=== PATIENT | female | born 1990 | race Caucasian/White ===

== ENCOUNTER 2018-07-29 11:38 | Outpatient (REF) | payer BC, SELFPAY | END 2018-07-29 11:58 | LOC: NCHCN 11:38 | PROVIDERS: Visit Provider Nurse Practitioner | DX: J02.9 Acute pharyngitis, unspecified (principal) | CPT/HCPCS: 87081 ==

== ENCOUNTER 2020-10-16 11:23 | Outpatient (REF) | payer BC, SELFPAY ==
[2020-10-17 14:47] LABS: COVID-19 RT-PCR UVMMC Result Negative (Negative)
== END 2020-10-16 11:24 | disposition home or self-care (01) ==
LOC: LBN 11:23
PROVIDERS: Visit Provider Family Medicine
DX: Z20.822 Contact with and (suspected) exposure to COVID-19 (principal); J06.9 Acute upper respiratory infection, unspecified
CPT/HCPCS: U0003

== ENCOUNTER 2021-07-18 03:00 | Outpatient (CLI) | payer BC, SELFPAY ==
[2021-07-18 09:30] VITALS: BP 147/101; PULSE 65; RESP 14; TEMP 37.2; O2SAT 97
[2021-07-18 11:45] VITALS: BP 152/97; PULSE 62; RESP 16; TEMP 37.1; O2SAT 98
== END 2021-07-18 03:01 | disposition home or self-care (01) ==
LOC: INF 03:03
PROVIDERS: PCP Nurse Practitioner Family; Visit Provider Family Medicine
DX: U07.1 COVID-19 (principal)
CPT/HCPCS: 96365; Q0047

== ENCOUNTER 2024-09-13 10:02 | Outpatient (CLI) | payer BC, SELFPAY ==
[2024-09-20 14:48] LABS: Apolipoprotein B, Serum 92 mg/dL (48-124); Beta VLDL Cholesterol Not Detected mg/dL (<15); Beta VLDL Triglycerides Not Detected mg/dL (<15); Cholesterol, Total, CDC 178 mg/dL; Chylomicron Cholesterol Not Detected; Chylomicron Triglycerides Not Detected; HDL Cholesterol, CDC 42 mg/dL (>=50); LDL Cholesterol 107 mg/dL; LDL Triglycerides 27 mg/dL (<=50); Lp(a) Cholesterol 6 mg/dL (<5); LpX Not detected; Triglycerides, CDC 106 mg/dL; VLDL Cholesterol 23 mg/dL (<30); VLDL Triglycerides 62 mg/dL (<120)
== END 2024-09-13 10:03 | disposition home or self-care (01) ==
LOC: LBO 10:02
PROVIDERS: PCP Nurse Practitioner Family; Visit Provider Nurse Practitioner Family
DX: Z83.438 Family history of other disorder of lipoprotein metabolism and other lipidemia (principal)
CPT/HCPCS: 36415; 80061; 82172; 82664

== ENCOUNTER 2025-01-16 07:57 | Outpatient (CLI) | payer BC, SELFPAY ==
--- NOTE | 2025-01-16 12:41 | W.NUTRFU ---
Date of service: 01/16/25 Time of Service: 12:00 Nutrition Note NOTE: Completed nutrition visit telephonically today as driving distance a barrier for Randi. She was referred for guidance in her goal for weight loss. She has already made great progress with sharing with me she has lost a little over 20lbs since august using a combination of diet habit changes and also taking tirsepatide 5mg weekly injection. She started on Victoza before August then had to transition to Zepbound which worked but wasn't covered until Randi got new insurance (reports a gap of about 2 months without GLP-1 on board). She has made changes since August as well - works on portion control/using smaller plate, drinking more water and uses zero sugar soda (usually just 1 serving per day). She has stopped eating out as much, and has cut back on regular Etoh use. She is interested in tracking her intake and being more aware of her macro nutrient intake. I gave her an outline of recommended energy and zara goals: 2600calories (current estimated energy needs at 3,100kcals with ambulatory activity factor), 130-195g protein daily (20-30%kcals), 260g total CHO, 86g total fat, no more than 30g added sugar, and at least 30g fiber and limiting SFA's to 25g per day. Suggested some evidenced based habits like not eating after 7pm and getting a good 50g protein in the first hour of waking. Suggested whey protein supplement to help achieve high protein goal along with mixing a good amount of plant choices for both fiber and protein intake. -she struggles with veggies and is working on increasing amount and varieties. Randi already off to a great start - suggested increasing exercise as weight loss is achieved for further benefit. She will continue her efforts and use the above macros for reference, and will call/email me with any comments, questions or need for more resources. Time Spent in Nutritional Counseling and Treatment: 30 min
== END 2025-01-16 07:58 | disposition home or self-care (01) ==
LOC: DS 07:57
PROVIDERS: PCP Nurse Practitioner Family; Visit Provider Dietitian, Registered
DX: E66.01 Morbid (severe) obesity due to excess calories (principal)
CPT/HCPCS: 00123; 97802